=== PATIENT | female | born 1990 | race Hispanic/Latino ===

== ENCOUNTER 2017-01-09 18:26 | Emergency (ER) | payer BC ==
[2017-01-09 18:32] VITALS: TEMP 99.4
[2017-01-09] MEDS ORDERED: DiphenhydrAMINE 50 mg/ml Inj IVP STA (18:42)
--- NOTE | 2017-01-09 18:42 | ED PDOC ---
HPI: Allergic Reaction Time Seen by Provider: 01/09/17 18:36 Chief Complaint (Nursing): Allergic Reaction Chief Complaint (Provider): Allergic reaction History Per: Patient Additional Complaint(s): 26 yo female, no PMH, presents to ED for evaluation of periorbital swelling and discomfort in throat after drinking soy milk this p.m., also c/o epigastric pain. Past Medical History Vital Signs: Last Vital Signs Temp 99.4 F 01/09/17 18:29 Pulse 76 01/09/17 18:29 Resp 18 01/09/17 18:29 BP 119/71 01/09/17 18:29 Pulse Ox 98 01/09/17 18:29 - Allergies Allergies/Adverse Reactions: Allergies Allergy/AdvReac Type Severity Reaction Status Date / Time soy Allergy SWELLING Uncoded 01/09/17 18:29 - ECG O2 Sat by Pulse Oximetry: 98 Disposition - Disposition
[2017-01-09 19:33] VITALS: BP 127/75; PULSE 52; RESP 16; O2SAT 97
== END 2017-01-09 20:15 | disposition home or self-care (01) ==
LOC: H.ER 18:26
DX: T78.40XA Allergy, unspecified, initial encounter (principal)
CPT/HCPCS: 96374; 96375; 99283; J1200; J2930